=== PATIENT | male | born 1965 | race Caucasian/White ===

== ENCOUNTER 2020-02-14 13:22 | Outpatient (REF) | payer MEDICARE, MEDICAID, SELFPAY | END 2020-02-14 13:23 | disposition home or self-care (01) | LOC: HO.LAB 13:22 | PROVIDERS: Visit Provider Internal Medicine | DX: Z20.828 Contact with and (suspected) exposure to other viral communicable diseases (principal) | CPT/HCPCS: C9803; U0003 ==

== ENCOUNTER 2020-05-16 13:42 | Outpatient (REF) | payer MEDICARE, MEDICAID, SELFPAY | END 2020-05-16 13:43 | disposition home or self-care (01) | LOC: HO.LAB 13:42 | PROVIDERS: Visit Provider Internal Medicine | DX: Z20.822 Contact with and (suspected) exposure to COVID-19 (principal) | CPT/HCPCS: 36415; C9803; U0003; U0005 ==

== ENCOUNTER 2025-01-11 08:24 | Outpatient (AMB) | payer OTHER, SELFPAY ==
--- NOTE | 2025-01-11 08:28 | MHC.OFFVIS ---
Vital Signs 01/11/25 08:37 Height 5 ft 5 in Weight 200 lb BMI 33.3 Intake Visit Reasons: 3 Month Follow Up Intake Note: This is a 59 year old male who presents for a 3 month follow up. Biomedical Specialist Required: Yes Biomedical Specialist Services: Biomedical Specialist Present Biomedical Specialist Name: Frankie [phone] Allergies No Known Allergies Allergy (Unverified 01/11/25 08:36) Medication List - Last Reconciled 01/11/25 by Itzel Abdi RN diphenhydramine HCl (Banophen) 25 mg PO BEDTIME PRN duloxetine 20 mg PO BID oxycodone 5 mg PO TID PRN risperidone 1 mg PO BEDTIME rosuvastatin 10 mg PO DAILY trazodone 100 mg PO BEDTIME HPI Comments Details: History of Present Illness The patient is a 59-year-old male presenting with chronic lower back pain. He has been experiencing this pain for many years and ambulates with a single-point cane. The patient reports good relief from caudal epidural injections and bilateral sacroiliac joint injections. He uses oxycodone 5 mg sporadically for severe pain, typically receiving 21 tablets that last him for three months or longer. The patient has not been seen since October 11, 2024, and has been using previous office notes for reference. The medication regimen has kept him out of the emergency room, and he denies any changes in bowel habits, fever, or chills. Pain Description - Chronic lower back pain for many years - Relief with caudal epidural and bilateral sacroiliac joint injections - Sporadic use of oxycodone 5 mg for severe pain Results [facility] Surgical History (Updated 01/09/25 @ 13:23 by Ana Jj MA) History of cataract surgery (Unknown) History of hernia repair (Unknown) Social History (Updated 01/09/25 @ 13:21 by Ana Jj MA) Alcohol intake: never Patient Tobacco Use Status: Never used Tobacco Review of Systems Narrative Review of Systems - Gastrointestinal: Denies changes in bowel habits - Constitutional: Denies fever or chills - Neurological: Denies headaches Physical Exam Exam Exam: Patient appears to be in no acute distress, appropriately conversant and oriented. The services of the professional gender studies professor was utilized during today's visit. Patient was able to perform heel walk and toe walk with support for balance. Neurological examination was nonfocal. Patient demonstrated no upper motor neuron signs. Lumbar extension and side bending was restricted. Pain with palpation over bilateral sacroiliac sulci. SI compression test was positive on both sides. Dural tension signs were negative. Vital Signs: BMI result Body Mass Index 33.3 Assessment & Plan Assessment & Plan (1) Low back pain: Code(s): M54.50 - Low back pain, unspecified Category: Medical (2) Chronic pain syndrome: Code(s): G89.4 - Chronic pain syndrome Category: Medical Plan Pain Management - Affect: No specific impact on mood or psychological wellbeing discussed - Analgesia: Uses oxycodone 5 mg sporadically, with 21 tablets lasting three months or longer - Adverse Effects: No adverse effects reported - Activities of Daily Living: Ambulates with a single-point cane - Aberrant Drug Related Behaviors: No signs of medication misuse or abuse Plan Patient was informed and verbally consented to the use of an ambient scribe for clinic note documentation during this visit. 1. Chronic Lower Back Pain The patient will continue with the current pain management regimen, including sporadic use of oxycodone 5 mg as needed for severe pain. The medication has been effective in keeping him out of the emergency room. Follow-up is scheduled every three months to monitor pain levels and medication efficacy. Discussion Notes I discussed with the patient the continuation of his current pain management regimen, including the sporadic use of oxycodone 5 mg for severe pain. We agreed on a follow-up schedule every three months to assess pain levels and medication effectiveness. Patient Instructions - Continue using oxycodone 5 mg as needed for severe pain. - Schedule and attend follow-up appointments every three months. Medications: New oxycodone 5 mg PO TID PRN 21 tabs 0RF pain Coding Level of Care Code Est Pt Level 3 (52208) Complex EM visit Add On G2211 Diagnoses Low back pain M54.50 Chronic pain syndrome G89.4
[2025-01-11 08:37] VITALS: BMI 33.3
--- OUTSIDE RECORDS SUMMARY | 2025-01-11 08:49 | XMS_ITS ---
Author Name [facility] Organization Unknown Care Team Organization Name Specialty Phone Email Start Date End Da te [facility] Karla Banda Primary Care 08/14/2022 10/25/[address] [facility] Termed, PROVIDER Primary Care 01/13/202210/06
--- OUTSIDE RECORDS SUMMARY | 2025-01-11 08:49 | XMS_ITS | Clinical Summary ---
Author Organization [facility] Address [address] [place] [address] Phone Care Team Providers Care Pullman Car Repairer Name Role Phone Karla Garcia MD Primary Care Prov ider Allergies No known active allergies Medications traZODone (DESYREL) 100 mg tablet Take 1 tablet (100 mg total) by mouth at bedtime. Active loratadine (CLARITIN) 10 mg tablet Take 1 tablet (10 mg total) by mouth 1 (one) time each day. Active tamsulosin (FLOMAX) 0.4 mg 24 hr capsule Take 1 capsule (0.4 mg total) by mouth 1 (one) time each day. Capsules should be taken 30 minutes following the same meal each day. Active risperiDONE (RisperDAL) 1 mg tablet Take 1 tablet (1 mg total) by mouth 1 (one) time each day. Active clonazePAM (KlonoPIN) 0.5 mg tablet 0.5 mg daily. 3 Active oxyCODONE (ROXICODONE) 5 mg immediate release tablet TOME 1 TABLETA POR V A ORAL MILTON VECES AL D A CUANDO SEA NECESARIO PARA EL DOLOR POR 7 D 4 Active sodium,potassiu m,mag sulfates (SUPREP) 17.5-3.13-1.6 gram recon soln bowel prep kit oral solution Take 17.5 g by mouth See Admin Instructions. 4 Active venlafaxine HCl (VENLAFAXINE ORAL) Take by mouth daily. Active pantoprazole (PROTONIX) 40 mg EC tablet Take 1 tablet (40 mg total) by mouth at bedtime. Do not crush, chew, or split. 90 each 3 5 07/07/19 Active DULoxetine (CYMBALTA) [address] capsule Take 1 capsule (20 mg total) by mouth 2 (two) times a day. Do not crush or chew. 180 each 3 5 07/07/19 26 Active rosuvastatin (CRESTOR) 10 mg tablet Take 1 tablet (10 mg total) by mouth 1 (one) time each day. 90 each 3 5 07/07/19 26 Active ketoconazole (NIZORAL) 2 % shampoo APPLY TO SCALP TWICE A WEEK AND RINSE THOROUGHLY 120 mL 1 Active diphenhydrAMINE (BenadryL) 25 mg capsule Take 1 capsule (25 mg total) by mouth at bedtime as needed for itching. 30 capsule 5 Active Active Problems Problem Noted Date Diagnosed Date Chest pain 02/28/2024 Back pain 02/22/2024 Dyslipidemia 02/22/2024 Assessment & Plan (11/07/2024 10:43 AM EDT): Currently on Rosuvastatin 10 mg day. Last LDL 167. We will continue same medication. Healthy diet is encouraged and regular exercise. Pending repeat labs. Assessment & Plan (07/06/2024 11:47 AM EDT): Orders: Comprehensive metabolic panel; Future Lipid panel with reflex to direct LDL; Future IBS (irritable bowel syndrome) 02/22/2024 Class 1 obesity due to exces s calories without serious comorbidity with body mass index (BMI) of 31.0 to 31.9 in adult 02/22/2024 Fatty liver 11/23/2023 Right hydrocele 11/23/2023 Abnormal CXR 12/05/2020 Abnormal EKG 12/05/2020 Gastroesophageal reflux disease without esophagi tis 03/05/2020 Assessment & Plan (11/07/2024 10:43 AM EDT): Currently on on PPI, symptoms are controlled. Continue Pantoprazole. Assessment & Plan (07/06/2024 4:59 PM EDT): Lymph node enlargement 11/25/2018 Overview (02/22/2024): Was seen by General surgery. This removed and pathology showed it was a Lipoma. Depression 05/12/2016 Overview (02/22/2024): F/u CHD Hemorrhoids 12/30/2015 BPH with obstruction/lower urinary tract symptom s 04/01/2015 Assessment & Plan (07/06/2024 4:59 PM EDT): Erectile dysfunction 03/07/2014 Impaired fasting glucose 03/07/2014 Encounters Date Type Department Care Team Description 11/07/2024 9:45 AM EDT Office Visit Adult Medicine [address] [phone] Karla Cordova MD Dyslipidemia (Primary Dx); Gastroesophageal reflux disease without esophagitis; Acrochordon; Onychomycosis from Last 3 Months Immunizations Immunization Administration Dates Next Due Hep B, Unspecified 12/06/2012 Influenza trivalent, 0.5mL, preservative free (Fluarix; FluLaval; Fluzone) ages 6mo and older (Afluria) 3 years and older 12/20/2015 Influenza, Unspecified 12/08/2022 [employer] SARS-CoV-2 COVID -19, vector-nr, rS-Ad26, preservative free 06/15/2020 PPD Test 07/02/2015 Tdap Tetanus diptheria acell ular pertussis (Boostrix; Adacel) 7yo and older 12/20/2015 Zoster recombinant (Shingrix) 19yo and older 11/2022,02/22/2022 Surgical History Surgery Date Site/Laterality Comments EYE SURGERY PROCEDURE: HISTORICAL EYE SURGERY COLONOSCOPY 02/12/2014 PROCEDURE: HISTORICAL COLONOSCOPY LIPOMA RESECTION PROCEDURE: SKIN TISSUE EXCISION(LIPOMA); COMMENT: neck HERNIA REPAIR PROCEDURE: TN REPAIR FIRST ABDOMINAL WALL HERNIA HERNIA REPAIR X2 EYE SURGERY Medical History Medical History Date Comments IBS (irritable bowel syndrome) D X:IBS (irritable bowel syndrome) Dyslipidemia DX:Dyslipidemia Back pain DX:Back pain Impaired fasting glucose 03/07/2014 DX:Impa ired fasting glucose History of gastritis 03/07/2014 DX:History of gastritis; COMMENT: Per transfer notes/ past Upper Endo Erectile dysfunction 03/07/2014 DX:Erectile dysfunction Internal hemorrhoids DX:Internal hemorrhoids Schizophrenia ([facility] V24, [facility] V28) DX:Schizophrenia ([facility]) Asthma DX:Asthma Hemorrhoids 12/30/2015 DX:Hemorrhoids Depression 05/12/2016 DX:Depression BPH with obstruction/lower u rinary tract symptoms 04/01/2015 DX:BPH with obstruction/lowe r urinary tract symptoms Anxiety GERD (gastroesophageal reflux disease) Hyperlipidemia Family History Medical History Relation Name Comments Diabetes Father cad Other: gastritis Mother arthritis Relation Name Status Comments Father Alive Mother Alive Social History Tobacco Use Types Packs/Day Years Used Date Smoking Tobacco: Never Smokeless Tobacco: Never Tobacco Cessation:Counseling Given: Not Answered Alcohol Use Standard Drinks/Week Comments No 0 (1 standard drink = 0.6 oz pur e alcohol) Sex and Gender Information Value Date Recorded Sex Assigned at Male 02/02/2024 12:20 PM EST Legal Sex Male 4:34 AM EST Gender Identity Male 02/02/2024 12:20 PM EST Sexual Orientation Straight 02/07/2024 8: 53 AM EST Obstetrics History Last Filed Vital Signs Vital Sign Reading Time Taken Comments Blood Pressure 118/66 11/07/2024 9:19 AM EDT Pulse 65 11/07/2024 9:19 AM EDT Temperature 36.6 C (97.9 F) 11/07/2024 9:19 AM EDT Respiratory Rate 16 11/07/2024 9:19 AM EDT Oxygen Saturation 95% 11/07/2024 9:19 AM EDT Inhaled Oxygen Concentration - - Weight 89.4 kg (197 lb) 11/07/2024 9:19 AM EDT Height 162.6 cm (5' 4 ) 11/07/2024 9:19 AM EDT Body Mass Index 33.81 11/07/2024 9:19 AM EDT Plan of Treatment Upcoming Encounters Date Type Department Care Team (Late st Contact Info) Description 02/14/2025 1:45 PM EST Office Visit Orthopedic Surgery - [address] [phone] Danny Bush, DPM [address] [address] 05/09/2025 8:30 AM EST Office Visit Adult Medicine [facility] [address] [place] [address] Karla Garcia MD [address] [place], [place] Health Maintenance Due Date Last Done Comments Social Influencers of Health Screening 02/08/2022 Depression Screening 03/08/2024 09/28/2023 COVID-19 Vaccine ( season) 2024 02/05/2021, 06/15/2020 Influenza Vaccine (#1) 2024 , 12/20/2015, 12/16/2014, Additional history exists DTaP,Tdap,and Td Vaccines (2 - Td or Tdap) 12/19/2025 12/20/2015 Colorectal Cancer Screening: Colonoscopy 07/15/2028 07/16/2023 Cholesterol Screening (Lipid Panel) 11/16/2029 11/16/2024, 06/07/2024, 09/15/2023, Additional history exists Medicare Annual Wellness Visit 11/08/2031 Postponed from 02/08/2022 (Not clinically appropriate to address at this time) RSV Immunization Adult Patients (1 - 1-dose 75+ series) 2041 Hepatitis B Vaccines Discontinued 12/06/2012 HIV Screening Completed 10/07/2018 Hepatitis C Screening Completed 06/10/2020 Zoster Vaccines Completed 06/14/2022, 02/22/2022 HIB Vaccines Aged Out No longer eligi ble based on patient's age to complete this topic HPV Vaccines Aged Out No longer eligi ble based on patient's age to complete this topic Hepatitis A Vaccines Discontinued IPV Vaccines Aged Out No longer eligi ble based on patient's age to complete this topic MMR Vaccines Aged Out No longer eligi ble based on patient's age to complete this topic Meningococcal ACWY Vaccine Aged Out N o longer eligible based on patient's age to complete this topic Meningococcal B Vaccine Aged Out No l onger eligible based on patient's age to complete this topic Pneumococcal Vaccine: 50+ Years Discontinued RSV Immunization Patients Under 20 months Aged Out No longer eligible based on patient's age to complete this topic Varicella Vaccines Aged Out No longer eligible based on patient's age to complete this topic Procedures Procedure Name Priority Date/Time Associated Diagnosis Comments COMPREHENSIVE METABOLIC PANEL Routine 11/16/2024 9:42 AM EDT Dyslipidemia LIPID PANEL WITH REFLEX TO DIRECT LDL Routine 11/16/2024 9:42 AM EDT Dyslipidemia DEPRESSION SCREENING Routine 09/28/2023 COLONOSCOPY Routine 07/16/2023 HEPATITIS C SCREENING Routine 06/10/2020 HIV SCREENING Routine 10/07/2018 from Last 3 Months or Most Recently Relevant to Health Maintenance Results * (ABNORMAL) Lipid panel with reflex to direct LDL (11/16/2024 9:42 AM EDT) Cholesterol 194 0 - 200 mg/dL LAB CHEMISTRY METHOD 11/16/2024 2:42 PM EDT [facility] Triglycerides 205(H) 0 - 150 mg/dL LAB CHEMISTRY METHOD 11/16/2024 2:42 PM EDT [facility] HDL 42 >=40 mg/dL LAB CHEMISTRY METHOD 11/16/2024 2:42 PM EDT [facility] LDL Calculated 111(H) 0 - 100 mg/dL LAB CHEMISTRY METHOD 11/16/2024 2:42 PM [facility] Comment:Estimated LDL Calcul ated using equation: Total cholesterol - HDL cholesterol - (Triglycerides/5) VLDL Cholesterol Jorge 41 mg/dL LAB CHEMISTRY METHOD 11/16/2024 2:42 PM EDT [facility] Non HDL Chol. (LDL+VLDL) 152(H) <145 mg/dL LAB CHEMISTRY METHOD 11/16/2024 2:42 PM EDT [facility] Chol/HDL Ratio 4.6(H) 0.0 - 4.4 LAB CHEMISTRY METHOD 11/16/2024 2:42 PM [facility] Blood Venous blood specimen / Unknown Venipuncture / Unknown 11/16/2024 9:42 AM EDT 11/16/2024 9:42 AM EDT us Karla Garcia MD LAB BLOOD ORDERABL ES Final Result [facility] [address] [place] [address], [place] [phone] * (ABNORMAL) Comprehensive metabolic panel (11/16/2024 9:42 AM EDT) Sodium 137 133 - 145 mmol/L LAB CHEMISTRY METHOD 11/16/2024 2:42 PM [facility] Potassium 4.5 3.5 - 5.5 mmol/L LAB CHEMISTRY METHOD 11/16/2024 2:42 PM [facility] Chloride 104 96 - 110 mmol/L LAB CHEMISTRY METHOD 11/16/2024 2:42 PM [facility] CO2 27 21 - 32 mmol/L LAB CHEMISTRY METHOD 11/16/2024 2:42 PM [facility] Anion Gap 6 3 - 11 LAB CHEMISTRY METHOD 11/16/2024 2:42 PM [facility] Glucose 117(H) 70 - 100 mg/dL LAB CHEMISTRY METHOD 11/16/2024 2:42 PM [facility] BUN 12 5 - 25 mg/dL LAB CHEMISTRY METHOD 11/16/2024 2:42 PM [facility] Creatinine 0.87 0.70 - 1.30 mg/dL LAB CHEMISTRY METHOD 11/16/2024 2:42 PM EDT [facility] eGFR 100 >=60 mL/min/1. 73m2 LAB CHEMISTRY METHOD 11/16/2024 2:42 PM T [facility] Comment:Calculation based on the Chronic Kidney Disease Epidemiology Collaboration (CKD-EPI) equation refit without adjustment for race. BUN/Creatinine Ratio 13.8 LAB CHEMISTRY METHOD 11/16/2024 2:42 PM EDT [facility] Calcium 9.0 8.5 - 10.5 mg/dL LAB CHEMISTRY METHOD 11/16/2024 2:42 PM [facility] AST (SGOT) 31 10 - 42 unit/L LAB CHEMISTRY METHOD 11/16/2024 2:42 PM [facility] ALT (SGPT) 38 10 - 60 unit/L LAB CHEMISTRY METHOD 11/16/2024 2:42 PM [facility] Alkaline Phosphatase 87 42 - 121 unit/L LAB CHEMISTRY METHOD 11/16/2024 2:42 PM [facility] Total Protein 7.6 6.0 - 8.0 g/dL LAB CHEMISTRY METHOD 11/16/2024 2:42 PM [facility] Albumin 3.7 3.2 - 5.0 g/dL LAB CHEMISTRY METHOD 11/16/2024 2:42 PM [facility] Total Bilirubin 0.7 0.0 - 1.4 mg/dL LAB CHEMISTRY METHOD 11/16/2024 2:42 PM [facility] Blood Venous blood specimen / Unknown Venipuncture / Unknown 11/16/2024 9:42 AM EDT 11/16/2024 9:42 AM EDT us Karla Garcia MD LAB BLOOD ORDERABL ES Final Result [facility] [address] [place] [address], [place] [phone] * Depression Screening (09/28/2023) Depression Screening Abstracted Historical Provider HEALTH MAINTENANCE Final Result * Colonoscopy (07/16/2023) [facility]ologist [facility] Colonoscopy No Interpretation , Abstracted Anatomical Region Laterality Modality Other Historical Provider HEALTH MAINTENANCE Final Result * Hepatitis C Screening (06/10/2020) [facility]ologist [facility] Hepatitis C Screening Abstracted Historical Provider HEALTH MAINTENANCE Final Result * HIV Screening (10/07/2018) Pathologist [facility] HIV Screening Abstracted Historical Provider HEALTH MAINTENANCE Final Result from Last 3 Months or Most Recently Relevant to Health Maintenance Insurance [facility] MEDICARE Member Subscriber Plan / Payer (Ef fective 2022-Present) Name:JOSE BA Relation to Subscriber:Self Name:Jose Arciniega Payer ID:[id number] Group ID:[id number] Type:Not on file Address: [place] [address] [place] [phone] [facility] MEDICARE Member Subscriber Plan / Payer (Ef fective 2022-Present) Name:JOSE BA Relation to Subscriber:Self Name:Jose Arciniega Payer ID:[id number] Group ID:[id number] Type:Not on file Address: [place] [id number] [place] [phone] Advance Directives * Full Code - Confirmed (Latest Code Status on File) Date Activated Date Inactivated Comments 02/28/2024 4:10 PM 02/29/2024 12:46 PM This code status was ascertained in the following way: Code status discussion: discussion with patient To update the patient's code status, place a code status order. Do not modify or discontinue any currently active code status orders. * Full Code - Default Date Activated Date Inactivated Comments 02/28/2024 3:49 PM 02/28/2024 4:10 PM This is or dejuan is used when code status has not been discussed with the patient, or code status is otherwise unknown/unconfirmed To update the patient's code status, place a code status order. Do not modify or discontinue any currently active code status orders. Care Teams Pullman Car Repairer Relationship Specialty Start Date End Date Karla Garcia MD [address] [place] [phone] PCP - General Internal Medicine 10/07/21
== END 2025-01-11 08:41 | disposition home or self-care (01) ==
LOC: HO.HPHYS 08:24
PROVIDERS: PCP Internal Medicine; Visit Provider Physical Medicine & Rehabilitation
DX: M54.50 Low back pain, unspecified (principal); G89.4 Chronic pain syndrome
CPT/HCPCS: 99213; G2211

== ENCOUNTER → 2025-01-11 08:24 | Outpatient (BNVA) | payer OTHER, SELFPAY | PROVIDERS: PCP Internal Medicine; Visit Provider Physical Medicine & Rehabilitation | DX: M54.50 Low back pain, unspecified (principal); G89.4 Chronic pain syndrome | CPT/HCPCS: 99212 ==